=== PATIENT | female | born 1980 | race African-American/Black ===

== ENCOUNTER 2016-08-14 19:50 | Emergency (ER) | payer SELFPAY ==
[~2016-08-14] VITALS: Ht 167.6 cm; Wt 108.9 kg
[2016-08-14 20:04] VITALS: BP 123/79
== END 2016-08-14 22:44 | disposition home or self-care (01) ==
LOC: ER 19:52
DX: L03.116 Cellulitis of left lower limb (principal); S80.862A Insect bite (nonvenomous), left lower leg, initial encounter; W57.XXXA Bitten or stung by nonvenomous insect and other nonvenomous arthropods, initial encounter; Y93.89 Activity, other specified; Y99.8 Other external cause status; Y92.89 Other specified places as the place of occurrence of the external cause

== ENCOUNTER 2016-09-10 20:58 | Emergency (ER) | payer SELFPAY ==
[~2016-09-10] VITALS: Ht 170.2 cm; Wt 106.6 kg
[2016-09-10 21:06] VITALS: BP 137/83
== END 2016-09-11 00:01 | disposition home or self-care (01) ==
LOC: ER 20:59
DX: M19.042 Primary osteoarthritis, left hand (principal)

== ENCOUNTER 2019-08-04 02:45 | Emergency (ER) | payer SELFPAY ==
[~2019-08-04] VITALS: Ht 167.6 cm; Wt 108.9 kg
[2019-08-04 04:47] VITALS: BP 112/72
== END 2019-08-04 05:08 | disposition home or self-care (01) ==
LOC: ER 02:47
DX: N63.0 Unspecified lump in unspecified breast (principal); N61.0 Mastitis without abscess; Z90.710 Acquired absence of both cervix and uterus